=== PATIENT | male | born 2000 | race African-American/Black ===

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

== ENCOUNTER 2019-03-18 18:53 | Emergency (ER) | payer SELFPAY ==
[~2019-03-18] VITALS: Ht 182.9 cm; Wt 56.7 kg
[2019-03-18 19:06] VITALS: BP 122/85
== END 2019-03-18 20:30 | disposition home or self-care (01) ==
LOC: ER 18:57
DX: S13.4XXA Sprain of ligaments of cervical spine, initial encounter (principal); M62.838 Other muscle spasm; V86.55XA Driver of 3- or 4- wheeled all-terrain vehicle (ATV) injured in nontraffic accident, initial encounter; Y93.89 Activity, other specified; Y99.9 Unspecified external cause status; Y92.820 Desert as the place of occurrence of the external cause
CPT/HCPCS: 70450; 72125

== ENCOUNTER 2021-12-12 23:06 | Emergency (ER) | payer BC, OTHER ==
[~2021-12-12] VITALS: Ht 180.3 cm; Wt 61.2 kg
[2021-12-13 01:48] VITALS: BP 123/82
== END 2021-12-13 02:22 | disposition home or self-care (01) ==
LOC: ER 23:06
DX: S61.211A Laceration without foreign body of left index finger without damage to nail, initial encounter (principal); W26.0XXA Contact with knife, initial encounter; Y93.89 Activity, other specified; Y92.89 Other specified places as the place of occurrence of the external cause; Y99.8 Other external cause status
CPT/HCPCS: 12001